=== PATIENT | male | born 1970 | race Two or more races ===

== ENCOUNTER 2021-06-07 03:49 | Emergency (ER) | payer OTHER ==
[~2021-06-07] VITALS: Ht 165.1 cm; Wt 67.1 kg
[~2021-06-07 03:49] MED LIST: LEVSIN0.125 MG PO; LYRICA300 MG
[2021-06-07] MEDS ORDERED: CYMBALTA60 MG (04:08)
== END 2021-06-07 09:50 | disposition home or self-care (01) ==
LOC: ER 03:49
DX: M21.331 Wrist drop, right wrist (principal); F41.8 Other specified anxiety disorders; R20.0 Anesthesia of skin